=== PATIENT | female | born 1985 | race Two or more races ===

== ENCOUNTER 2017-12-21 21:42 | Emergency (ER) | payer OTHER ==
[~2017-12-21] VITALS: Ht 152.4 cm; Wt 59.0 kg
[2017-12-21] MEDS ORDERED: Tetanus/Diptheria/Pertussis Vaccine 0.5ml Syr IM ONE (22:00)
--- NOTE | 2017-12-21 22:17 | Emergency Room Report ---
History of Present Illness General Chief Complaint: Laceration Source: Patient Present Illness HPI Patient cut her finger yesterday at work. Bleeding was minimal and controlled. 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 She is right-handed. Her last tetanus was unknown. Pain rated 6/10. No numbness. No major medical problems. 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 Last Menstrual Period: dec Reviewed Nursing Documentation: PMH: Agreed; PSxH: Agreed Nursing Documentation-PMH Past Medical History: No Stated History Review of Systems Constitutional: Denies: fever Musculoskeletal: Reports: see HPI Skin: Reports: see HPI Neurological: Reports: see HPI Hematologic/Lymphatic: Reports: see HPI Physical Exam Vital Signs Date Time Temp Pulse Resp B/P (MAP) Pulse Ox O2 Delivery O2 Flow Rate FiO2 12/21/17 21:53 97.9 67 18 102/68 100 Room Air 97.9 Sp02 EP Interpretation: reviewed, normal General Appearance: well appearing, no apparent distress Head: normocephalic, atraumatic Eyes: bilateral eye normal inspection, bilateral eye PERRL ENT: hearing grossly normal, normal voice, moist mucus membranes Neck: full range of motion, supple Respiratory: no respiratory distress, speaking full sentences Gastrointestinal: normal inspection Musculoskeletal: normal range of motion Neurologic: alert, oriented x3, motor strength/tone normal, sensory intact, normal gait Psychiatric: mood/affect normal Skin: laceration - left little finger Procedures Laceration/Wound Repair Laceration/Wound Repair : Consent: Verbal Wound Location: upper extremity Wound's Depth, Shape: superficial, linear Wound Length (cm): 1 Wound Explored: clean Irrigated w/ Saline (ccs): 10 Betadine Prep?: Yes Wound Debrided: none Wound Repaired With: Dermabond Sterile Dressing Applied?: No Patient Tolerated: Well Complications: None Medical Decision Making Diagnostic Impression: Primary Impression: Laceration of little finger Qualified Codes: S61.217A - Laceration without foreign body of left little finger without damage to nail, initial encounter ER Course Patient with laceration L little finger. Late presentation, though wound looks clean. As gaping open, dermabond indicated. Cleaned thoroughly. Dermabond applied. Tolerated well. Patient stable for outpatient observation and treatment. Last Vital Signs Date Time Temp Pulse Resp B/P (MAP) Pulse Ox O2 Delivery O2 Flow Rate FiO2 12/21/17 22:29 0/0 12/21/17 22:29 97.9 18 100 Room Air 97.9 12/21/17 21:53 67 Status: improved Disposition: HOME, SELF-CARE Condition: Improved Isreal Munoz M.D. Dec 21, 2017 22:17
[2017-12-21 22:29] VITALS: BP_SYST 0; BP_SYST 102; BP_DIAS 0; BP_DIAS 68
== END 2017-12-21 22:20 | disposition home or self-care (01) ==
LOC: EMR 22:19
DX: S61.217A Laceration without foreign body of left little finger without damage to nail, initial encounter (principal); W26.0XXA Contact with knife, initial encounter; Y92.511 Restaurant or cafe as the place of occurrence of the external cause; Y99.0 Civilian activity done for income or pay; Z23 Encounter for immunization; Z88.6 Allergy status to analgesic agent
CPT/HCPCS: 90471; 90715; 99283

== ENCOUNTER 2018-02-17 21:43 | Emergency (ER) | payer OTHER ==
[~2018-02-17] VITALS: Ht 154.9 cm; Wt 63.0 kg
[2018-02-17 22:10] VITALS: BP 121/73
[2018-02-17] MEDS ORDERED: IBUPROFEN600 MG ORAL (22:41)
--- NOTE | 2018-02-17 22:41 | Emergency Room Report ---
History of Present Illness General Chief Complaint: Multiple Trauma/Fall Source: Patient Present Illness HPI Is a 32-year-old female presents with head injury. 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 No loss of consciousness. Pain is 5 out of 10. Now complaining of headache and neck pain. No other injury. Did not pass out. Nothing made it better. Nothing made it worse. Allergies: Coded Allergies: ACETAMINOPHEN (Verified Allergy, Unknown, 02/17/18) Patient History Past Medical History: see triage record, old chart reviewed Past Surgical History: none Pertinent Family History: none Social History: Denies: smoking Last Menstrual Period: 01/2018 Now: No Immunizations: other Reviewed Nursing Documentation: PMH: Agreed; PSxH: Agreed Nursing Documentation-PMH Past Medical History: No Stated History Review of Systems Eye: Denies: eye pain, blurred vision ENT: Denies: ear pain, nose congestion, throat swelling Respiratory: Denies: cough, shortness of breath Cardiovascular: Denies: chest pain, palpitations Gastrointestinal: Denies: abdominal pain, diarrhea, nausea, vomiting Musculoskeletal: Denies: back pain, joint pain Skin: Denies: rash Neurological: Denies: headache, numbness Endocrine: Denies: increased thirst, increased urine Hematologic/Lymphatic: Denies: easy bruising All Other Systems: negative except mentioned in HPI Physical Exam Vital Signs Date Time Temp Pulse Resp B/P (MAP) Pulse Ox O2 Delivery O2 Flow Rate FiO2 02/17/18 21:59 98.8 73 16 117/70 100 Room Air vitals normal Sp02 EP Interpretation: reviewed, normal General Appearance: well appearing, no apparent distress, alert Head: normocephalic, atraumatic, other - Mild tenderness over the occiput. No hematoma. Eyes: bilateral eye PERRL, bilateral eye EOMI ENT: hearing grossly normal, normal pharynx Neck: full range of motion, supple, no meningismus Respiratory: chest non-tender, lungs clear, normal breath sounds Cardiovascular #1: regular rate, rhythm, no murmur Gastrointestinal: normal bowel sounds, non tender, no mass, no organomegaly, no bruit, non-distended Musculoskeletal: back normal, gait/station normal, normal range of motion Psychiatric: mood/affect normal Skin: warm/dry Medical Decision Making Diagnostic Impression: Primary Impression: Head injury, acute Qualified Codes: S09.90XA - Unspecified injury of head, initial encounter ER Course Patient presents with soft tissue injury from trauma. No internal bleeding or skull fracture. We'll discharge home. CT/MRI/US Diagnostic Results CT/MRI/US Diagnostic Results : Imaging Test Ordered: CT head Impression no acute process per radiologist Last Vital Signs Date Time Temp Pulse Resp B/P (MAP) Pulse Ox O2 Delivery O2 Flow Rate FiO2 02/17/18 21:59 98.8 73 16 117/70 100 Room Air Status: improved Disposition: HOME, SELF-CARE Condition: Stable Scripts Ibuprofen* (MOTRIN*) 600 Mg Tablet 600 MG ORAL THREE TIMES A DAY, #30 TAB 0 Refills Prov: Alonso Guerra MD 02/17/18 Additional Instructions: Follow-up with Worker's Comp. in 2-3 days. Return if worse. Alonso Guerra MD Feb 17, 2018 22:41
[2018-02-17 22:59] VITALS: BP 121/73
--- NOTE | 2018-02-18 09:31 | Diagnostic Imaging Report ---
Indications: Pain, head trauma, heavy object fell on patient's head, 9 out of 10 headache Technique: Spiral acquisitions obtained through the brain. Angled axial and coronal 5 x 5 mm slices were reconstructed. Total dose length product 1319.78 mGycm. CTDI vol(s) 70.38 mGy. Dose reduction achieved using automated exposure control Comparison: None. Findings: No acute intercranial hemorrhage nor edema. No mass effect nor midline shift. Normal mcguire-white differentiation. Large coarse parenchymal calcifications are seen in the right frontal cortex and in the left caudate head body junction. An extra-axial calcification is seen along the falx near the vertex just to the left of midline. These do not result in any significant mass effect. Mcguire-white differentiation is normal. Visualized orbits are unremarkable. There is ethmoid and maxillary sinus mucosal thickening noted. The mastoids are clear. 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 The CT scanner at [facility] is accredited by the [employer] and the scans are performed using protocols designed to limit radiation exposure to as low as reasonably achievable to attain images of sufficient resolution adequate for diagnostic evaluation.
== END 2018-02-17 23:28 | disposition home or self-care (01) ==
LOC: EMR 22:25
DX: S09.90XA Unspecified injury of head, initial encounter (principal); W20.8XXA Other cause of strike by thrown, projected or falling object, initial encounter; Y93.89 Activity, other specified; Y92.69 Other specified industrial and construction area as the place of occurrence of the external cause; Z88.6 Allergy status to analgesic agent
CPT/HCPCS: 70450; 99284